=== PATIENT | female | born 1995 | race African-American/Black ===

== ENCOUNTER 2020-06-28 12:11 | Emergency (ER) | payer SELFPAY ==
[~2020-06-28] VITALS: Ht 167.6 cm; Wt 83.0 kg
[2020-06-28 12:13] VITALS: BP 121/81
== END 2020-06-28 13:24 | disposition home or self-care (01) ==
LOC: ER 12:11
DX: M25.561 Pain in right knee (principal)
CPT/HCPCS: 73562; 99283